=== PATIENT | female | born 1970 | race Caucasian/White ===

== ENCOUNTER 2016-09-16 23:13 | Emergency (ER) | payer BC ==
[~2016-09-16] VITALS: Ht 175.3 cm; Wt 125.6 kg
[~2016-09-16 23:13] MED LIST: METO25TA35 PO
[2016-09-16] MEDS ORDERED: LORazepam 1MG TABLET ONE (23:53)
[2016-09-17] MEDS ORDERED: LORazepam 1MG TABLET PO ONE
[2016-09-17 00:09] LABS: BLOOD UREA NITROGEN 20 mg/dL (7-18)
[2016-09-17 00:14] LABS: IS PT STATUS REG ER OR PRE ER? YES
[2016-09-17 04:06] LABS: IS PT STATUS REG ER OR PRE ER? YES
[2016-09-17 04:16] VITALS: BP 114/60
== END 2016-09-17 04:17 | disposition home or self-care (01) ==
LOC: ED 23:59
DX: R07.89 Other chest pain (principal); R06.00 Dyspnea, unspecified; F41.1 Generalized anxiety disorder; I10 Essential (primary) hypertension; J45.909 Unspecified asthma, uncomplicated; Z87.891 Personal history of nicotine dependence
CPT/HCPCS: 36415; 71010; 80048; 82040; 84484; 85025; 93005; 99285; J7512

== ENCOUNTER → 2017-04-08 | Outpatient (CLI) | payer OTHER | LOC: CARD 09:22 | PROVIDERS: ATTEND Nurse Practitioner Primary Care | DX: Z02.9 Encounter for administrative examinations, unspecified (principal) ==

== ENCOUNTER 2017-04-25 20:11 | Emergency (ER) | payer OTHER ==
[~2017-04-25] VITALS: Ht 175.3 cm; Wt 126.2 kg
[2017-04-25] MEDS ORDERED: SODIUM CHLORIDE FLUSH 10ML SYR IVF ONE (20:30)
[2017-04-25] MEDS ORDERED: SODIUM CHLORIDE 0.9% 1,000ML IVBOLUS ONE ×2 (20:30→22:00)
[2017-04-25] MEDS ORDERED: MAALOX/HYOSCYAMINE/LIDOCAINE 45 ML BTL PO ONE (20:30)
[2017-04-25] MEDS ORDERED: FAMOTIDINE 20 MG/2 ML IVP ONE (20:30)
[2017-04-25] MEDS ORDERED: ONDANSETRON 2MG/ML, 2ML IVPush ONE (20:30)
[2017-04-25 21:03] LABS: BASOPHILS # (AUTO) 0.06 x10^3/uL (0-0.1); BASOPHILS % (AUTO) 1 % (0-1); EOSINOPHILS # (AUTO) 0.24 x10^3/uL (0-0.4); EOSINOPHILS % (AUTO) 3 % (1-7); LYMPHOCYTES # (AUTO) 2.96 x10^3/uL (1-3.4); LYMPHOCYTES % (AUTO) 36 % (22-44); MD NO; MEAN CORPUSCULAR VOLUME 88.3 fL (80-100); MEAN PLATELET VOLUME 7.5 fL (7.4-10.4); MONOCYTES # (AUTO) 0.61 x10^3/uL (0.2-0.8); MONOCYTES % (AUTO) 7 % (2-9); NEUTROPHILS # (AUTO) 4.39 x10^3/uL (1.8-6.8); NEUTROPHILS % (AUTO) 53 % (42-75); PLATELET COUNT 380 x10^3/uL (130-400); RED BLOOD COUNT 4.67 x10^6/uL (3.82-5.3); RED CELL DISTRIBUTION WIDTH 13.2 % (9.6-15.2)
[2017-04-25 21:09] LABS: MICROSCOPIC NOT IND
[2017-04-25 21:14] LABS: ALBUMIN 3.7 g/dL (3.4-5.0); ANION GAP 8 mmol/L (5-15); CALCIUM 9.1 mg/dL (8.5-10.1); CHLORIDE 105 mmol/L (98-107)
[2017-04-25 21:14] LABS: CULTURE INDICATED? NO
[2017-04-25 21:17] LABS: ALANINE AMINOTRANSFERASE 75 U/L (12-78); ALKALINE PHOSPHATASE 114 U/L (45-117); BILIRUBIN,TOTAL 0.3 mg/dL (0.2-1.0); CREATININE 0.73 mg/dL (0.55-1.02); TOTAL PROTEIN 6.9 g/dL (6.4-8.2)
[2017-04-25] MEDS ORDERED: FAMOTIDINE 20 MG/2 ML ONE (21:27)
[2017-04-25] MEDS ORDERED: KETOROLAC 30 MG/1 ML ONE (21:27)
[2017-04-25] MEDS ORDERED: ONDANSETRON 2MG/ML, 2ML ONE (21:27)
[2017-04-25] MEDS ORDERED: MAALOX/HYOSCYAMINE/LIDOCAINE 45 ML BTL ONE (21:27)
[2017-04-25] MEDS ORDERED: KETOROLAC 30 MG/1 ML IVPush ONE (21:30)
[2017-04-25 23:35] VITALS: BP 147/82
== END 2017-04-25 23:37 | disposition home or self-care (01) ==
LOC: ED 23:12
DX: R10.84 Generalized abdominal pain (principal); R11.2 Nausea with vomiting, unspecified; E86.0 Dehydration; I10 Essential (primary) hypertension; E78.5 Hyperlipidemia, unspecified; Z90.49 Acquired absence of other specified parts of digestive tract
CPT/HCPCS: 36415; 74021; 80053; 81003; 83690; 85025; 96361; 96374; 96375; 99285; J1885; J7030; S0028

== ENCOUNTER → 2017-05-13 | Outpatient (CLI) | payer OTHER ==
[~2017-05-13] MED LIST changes: +REGADENOSON 0.4 MG/5 ML SYRINGE ONE
== END | disposition home or self-care (01) ==
LOC: CFH 08:23
PROVIDERS: ATTEND Nurse Practitioner Primary Care
DX: I44.7 Left bundle-branch block, unspecified (principal); I25.2 Old myocardial infarction; I10 Essential (primary) hypertension; Q21.1 Atrial septal defect; J45.909 Unspecified asthma, uncomplicated; R53.83 Other fatigue; F19.21 Other psychoactive substance dependence, in remission; M25.562 Pain in left knee; M25.561 Pain in right knee; R51 Headache; L30.9 Dermatitis, unspecified; M25.531 Pain in right wrist; M25.532 Pain in left wrist; R94.31 Abnormal electrocardiogram [ECG] [EKG]; E53.8 Deficiency of other specified B group vitamins; E55.9 Vitamin D deficiency, unspecified; Z98.84 Bariatric surgery status
CPT/HCPCS: 78452; 93017; 93306; A9502; J2785

== ENCOUNTER 2017-06-05 10:36 | Day surgery (SDC) | payer OTHER ==
[2017-06-04 08:51] LABS: BASOPHILS # (AUTO) 0.01 x10^3/uL (0-0.1); BASOPHILS % (AUTO) 0 % (0-1); EOSINOPHILS # (AUTO) 0.12 x10^3/uL (0-0.4); EOSINOPHILS % (AUTO) 1 % (1-7); LYMPHOCYTES # (AUTO) 2.04 x10^3/uL (1-3.4); LYMPHOCYTES % (AUTO) 16 % (22-44); MD NO; MEAN CORPUSCULAR HEMOGLOBIN 29.9 pg (27.0-34.8); MEAN CORPUSCULAR HGB CONC 33.9 g/dL (32.4-35.8); MEAN CORPUSCULAR VOLUME 88.3 fL (80-100); MEAN PLATELET VOLUME 7.6 fL (7.4-10.4); MONOCYTES # (AUTO) 0.48 x10^3/uL (0.2-0.8); MONOCYTES % (AUTO) 4 % (2-9); NEUTROPHILS # (AUTO) 9.84 x10^3/uL (1.8-6.8); NEUTROPHILS % (AUTO) 79 % (42-75); PLATELET COUNT 400 x10^3/uL (130-400); RED BLOOD COUNT 4.88 x10^6/uL (3.82-5.3); RED CELL DISTRIBUTION WIDTH 13.9 % (9.6-15.2)
[2017-06-04 08:52] VITALS: BP 170/92
[2017-06-04 09:02] LABS: ANION GAP 6 mmol/L (5-15); CALCIUM 8.8 mg/dL (8.5-10.1); CHLORIDE 106 mmol/L (98-107); CREATININE 0.76 mg/dL (0.55-1.02)
[~2017-06-05] VITALS: Ht 175.3 cm; Wt 127.7 kg
[~2017-06-05 10:36] MED LIST changes: +5-HY100C3 PO; +ASPI1TAB31 PO; +FLUT100B PO; +HYDR25TA6 PO; +LACT1CAP37 PO; +LEVA15HF4 INH; +MONT10TA6 PO; +MULT-767 PO; -REGADENOSON 0.4 MG/5 ML SYRINGE ONE
[2017-06-05] MEDS ORDERED: ASPIRIN 325 MG TABLET EC ONE (11:20)
[2017-06-05] MEDS ORDERED: ASPIRIN 325 MG TABLET PO ONE (11:30)
[2017-06-05] MEDS ORDERED: FENTANYL PF 100 MCG/2ML ONE (13:12)
[2017-06-05] MEDS ORDERED: TICAGRELOR 90 MG TABLET ONE (13:12)
[2017-06-05] MEDS ORDERED: BIVALIRUDIN 250 MG ONE (13:12)
[2017-06-05] MEDS ORDERED: MIDAZOLAM 1 MG/ML, 5ML ONE (13:12)
[2017-06-05] MEDS ORDERED: VERAPAMIL 2.5 MG/ML, 2ML ONE (13:12)
[2017-06-05] MEDS ORDERED: HEPARIN 1,000 UNITS/ML, 10ML ONE (13:13)
[2017-06-05] MEDS ORDERED: LIDOCAINE 2%, 20ML ONE (13:13)
[2017-06-05] MEDS ORDERED: DIPHENHYDRAMINE 50 MG/ML, 1ML ONE (13:43)
[2017-06-05] MEDS ORDERED: SODIUM CHLORIDE 0.9% 1,000 ML IV SCH (13:54)
== END 2017-06-05 16:07 ==
LOC: CACL 10:36
PROVIDERS: ATTEND Internal Medicine Cardiovascular Disease
DX: R07.89 Other chest pain (principal); J45.909 Unspecified asthma, uncomplicated; I10 Essential (primary) hypertension; E78.4 Other hyperlipidemia; Z88.0 Allergy status to penicillin; Z88.2 Allergy status to sulfonamides; Z79.82 Long term (current) use of aspirin; Z79.899 Other long term (current) drug therapy
CPT/HCPCS: 36415; 80048; 85025; 93458; 99156; C1769; C1894; J1200; J1644; J2250; J3010; J3490; Q9967; J0583

== ENCOUNTER → 2017-09-03 | Outpatient (CLI) | payer OTHER ==
[~2017-09-03] MED LIST changes: +GADOBUTROL 10 MMOL/10 ML VIAL ONE
== END | disposition home or self-care (01) ==
LOC: CFH 14:54
PROVIDERS: ATTEND Nurse Practitioner Primary Care
DX: I10 Essential (primary) hypertension (principal); R41.0 Disorientation, unspecified; J45.909 Unspecified asthma, uncomplicated; E55.9 Vitamin D deficiency, unspecified; K21.9 Gastro-esophageal reflux disease without esophagitis
CPT/HCPCS: 70553; A9585

== ENCOUNTER 2018-03-09 06:16 | Day surgery (SDC) | payer OTHER ==
[~2018-03-09] VITALS: Ht 175.3 cm; Wt 134.0 kg
[~2018-03-09 06:16] MED LIST changes: -GADOBUTROL 10 MMOL/10 ML VIAL ONE
[2018-03-09] MEDS ORDERED: BUPIVACAINE/PF-EPI 0.5% 1:200K ONE (06:24)
[2018-03-09] MEDS ORDERED: HYDR25TA6 PO (06:56)
[2018-03-09] MEDS ORDERED: METH500T97 PO (06:56)
[2018-03-09] MEDS ORDERED: IBUP-1221 PO (06:56)
[2018-03-09] MEDS ORDERED: LACTATED RINGERS 1,000 ML IV SCH (07:05)
[2018-03-09 07:06] VITALS: BP 116/90
[2018-03-09 07:40] LABS: ALANINE AMINOTRANSFERASE 37 U/L (12-78); ALBUMIN 3.8 g/dL (3.4-5.0); ANION GAP 6 mmol/L (5-15); CALCIUM 8.5 mg/dL (8.5-10.1); CHLORIDE 111 mmol/L (98-107); CREATININE 0.63 mg/dL (0.55-1.02)
[2018-03-09 07:42] LABS: ALKALINE PHOSPHATASE 63 U/L (45-117); BILIRUBIN,TOTAL 0.4 mg/dL (0.2-1.0)
[2018-03-09] MEDS ORDERED: TRIAMCINOLONE ACETONIDE 40 MG/ML, 1ML ONE (07:49)
[2018-03-09] MEDS ORDERED: BACITRACIN 50,000 UNIT ONE (07:54)
[2018-03-09] MEDS ORDERED: FENTANYL PF 100 MCG/2ML ONE ×2 (07:59→08:38)
[2018-03-09] MEDS ORDERED: MIDAZOLAM 1 MG/ML, 2ML ONE (07:59)
[2018-03-09] MEDS ORDERED: PROPOFOL 10 MG/ML, 20ML ONE (08:02)
[2018-03-09] MEDS ORDERED: ROCURONIUM 10MG/ML,5ML ONE (08:02)
[2018-03-09] MEDS ORDERED: SUCCINYLCHOLINE 20 MG/ML, 10ML ONE (08:02)
[2018-03-09] MEDS ORDERED: DEXAMETHASONE 4 MG/ML, 1ML ONE (08:06)
[2018-03-09] MEDS ORDERED: ONDANSETRON 2MG/ML, 2ML ONE (08:06)
[2018-03-09] MEDS ORDERED: KETOROLAC 30 MG/1 ML ONE (08:24)
[2018-03-09] MEDS ORDERED: PROMETHAZINE 25 MG/ML, 1ML IV PRN (08:30)
[2018-03-09] MEDS ORDERED: ACETAMINOPHEN 325 MG TABLET PO PRN (08:30)
[2018-03-09] MEDS ORDERED: HYDROmorphone 2 MG/ML, 1ML IVPush PRN (08:30)
[2018-03-09] MEDS ORDERED: MORPHINE SULFATE 4 MG/ML, 1ML IVPush PRN (08:30)
[2018-03-09] MEDS ORDERED: FENTANYL PF 100 MCG/2ML IV PRN (08:30)
[2018-03-09] MEDS ORDERED: EPHEDRINE 50 MG/ML, 1ML IVPush PRN (08:30)
[2018-03-09] MEDS ORDERED: ONDANSETRON 2MG/ML, 2ML IV PRN (08:30)
[2018-03-09] MEDS ORDERED: PROMETHAZINE 12.5 MG SUPP PR PRN (08:30)
[2018-03-09] MEDS ORDERED: MEPERIDINE/PF 25MG/0.5ML IVPush PRN (08:30)
[2018-03-09] MEDS ORDERED: LABETALOL 5MG/ML, 20ML IV PRN (08:30)
[2018-03-09] MEDS ORDERED: ALBUTEROL SULFATE 2.5 MG/3 ML NPPB PRN (08:30)
[2018-03-09] MEDS ORDERED: OXYcodone 5 MG/5 ML ORAL.SOL UDC PO PRN (08:30)
[2018-03-09] MEDS ORDERED: DIAZEPAM 5 MG/ML, 2ML IVPush PRN (08:30)
[2018-03-09] MEDS ORDERED: MIDAZOLAM 1 MG/ML, 2ML IV PRN (08:30)
[2018-03-09] MEDS ORDERED: hydrALAzine 20 MG/ML, 1ML IV PRN (08:30)
[2018-03-09] MEDS ORDERED: ONDANSETRON ODT 8 MG PO PRN (08:30)
[2018-03-09] MEDS ORDERED: OXYcodone 5 MG/5 ML ORAL.SOL UDC ONE (08:38)
[2018-03-09] MEDS ORDERED: ACETAMINOPHEN 650 MG/20.3 ML UDC ONE (09:13)
== END 2018-03-09 10:15 | disposition home or self-care (01) ==
LOC: OUT 06:16
PROVIDERS: ATTEND Orthopaedic Surgery
DX: G56.02 Carpal tunnel syndrome, left upper limb (principal); M19.042 Primary osteoarthritis, left hand; J45.909 Unspecified asthma, uncomplicated; I10 Essential (primary) hypertension; Z87.891 Personal history of nicotine dependence; Z88.1 Allergy status to other antibiotic agents; Z88.0 Allergy status to penicillin
CPT/HCPCS: 20600; 29848; 36415; 80053; J0330; J1100; J1885; J2250; J2405; J2704; J3301; J7120; J3010

== ENCOUNTER 2019-10-26 16:38 | Emergency (ER) | payer OTHER ==
[~2019-10-26] VITALS: Ht 175.3 cm; Wt 132.0 kg
[~2019-10-26 16:38] MED LIST changes: +CYAN-27 PO; +ERGO500017 PO; +IBUP-1221 PO; +MAGN400T26 PO; +METH500T97 PO; +PHOS250T3 PO; +POTA20TA89 PO; +SERT100T32 PO
--- NOTE | 2019-10-26 16:53 | NUR ---
ERMD AT BEDSIDE FOR EVALUATION.
--- NOTE | 2019-10-26 16:53 | NUR ---
PATIENT BIB [facility] AFTER BEING SEEN AT URGENT CARE. PATIENT STATES THAT AROUND NOON SHE STARTED FEELING SHARP/BURNING PAIN IN THE BACK OF HER NECK WHICH SPREAD THROUGHOUT HER BODY. PATIENT DESCRIBES PAIN FEELING LIKE "LITTLE KNIVES ALL OVER." PATIENT ALSO STATED THAT SHE STARTED HAVING A DIFFICULT TIME TAKING IN DEEP BREATHS DUE TO A DULL/DEEP PAIN IN THE RIGHT SIDE OF HER ABDOMEN/FLANK AREA. PATIENT TOOK 50 MG BENADRYL. PATIENT WENT TO URGENT CARE AND WAS NOTICED TO HAVE SOME HIVES BUE AND BLE, SHE WAS GIVEN 150 MG SOLU-MEDROL AT URGENT CARE BEFORE BEING TRANSPORTED TO HOSPITAL. PATIENT IS ACCOMPANIED BY SIGNIFICANT OTHER, A&OX4, C/O OF DIFFICULTY TAKING DEEP BREATHS, O2 SATURATION IS 99% ON RA. SMALL RED BUMPS NOTED ON BOTH LEGS, CHEST, BACK AND CHIN. PATIENT C/O OF 5/10 PAIN WHEN SHE TAKES IN A DEEP BREATH.
[2019-10-26] MEDS ORDERED: SODIUM CHLORIDE FLUSH 10ML SYR IVF ONE (17:00)
[2019-10-26] MEDS ORDERED: HYDROmorphone 2 MG/ML, 1ML IVPush PRN (17:00)
[2019-10-26] MEDS ORDERED: MELO15TA6 PO (17:01)
[2019-10-26] MEDS ORDERED: SPIR50TA4 PO (17:02)
[2019-10-26] MEDS ORDERED: HYDROmorphone 1 MG/ML, 1ML INJ ONE (17:13)
--- NOTE | 2019-10-26 17:21 | NUR ---
PATIENT MEDICATED PER eMAR, CONNECTED TO TRACK LAYING MACHINE OPERATOR, EDUCATED ON NEED FOR URINE SAMPLE. PATIENT STATES SHE WILL TRY TO URINATE IN A FEW MINUTES. NO FURTHER NEEDS AT THIS TIME.
--- NOTE | 2019-10-26 18:01 | NUR ---
PATIENT AMBULATED TO BATHROOM WITH SOME INCREASE IN SOB AND PAIN WHEN TAKING DEEP BREATHS. URINE SAMPLE SENT TO LAB. PATIENT STATES HER PAIN LEVEL IS BETTER AFTER THE DILAUDID. PATIENT'S O2 SATURATION IS 97% ON RA. NO FURTHER NEEDS AT THIS TIME.
[2019-10-26 18:06] LABS: BASOPHILS # (AUTO) 0.04 x10^3/uL (0-0.1); BASOPHILS % (AUTO) 0 % (0-1); EOSINOPHILS # (AUTO) 0.13 x10^3/uL (0-0.4); EOSINOPHILS % (AUTO) 1 % (1-7); LYMPHOCYTES % (AUTO) 7 % (22-44); MD NO; MEAN CORPUSCULAR HEMOGLOBIN 24.2 pg (27.0-34.8); MEAN CORPUSCULAR HGB CONC 31.6 g/dL (32.4-35.8); MEAN CORPUSCULAR VOLUME 76.5 fL (80-100); MONOCYTES # (AUTO) 0.45 x10^3/uL (0.2-0.8); MONOCYTES % (AUTO) 4 % (2-9); NEUTROPHILS # (AUTO) 9.89 x10^3/uL (1.8-6.8); NEUTROPHILS % (AUTO) 88 % (42-75); PLATELET COUNT 383 x10^3/uL (130-400); RED BLOOD COUNT 4.29 x10^6/uL (3.82-5.3); RED CELL DISTRIBUTION WIDTH 15.6 % (9.6-15.2)
[2019-10-26] MEDS ORDERED: ALUMINUM/MAG/SIMETHICONE 30 ML UDC ONE (18:10)
[2019-10-26 18:11] LABS: MICROSCOPIC NOT IND
[2019-10-26 18:11] LABS: ALBUMIN 3.7 g/dL (3.4-5.0); ANION GAP 7 mmol/L (5-15); CALCIUM 8.3 mg/dL (8.5-10.1); CHLORIDE 111 mmol/L (98-107)
[2019-10-26 18:16] LABS: ALANINE AMINOTRANSFERASE 34 U/L (12-78); ALKALINE PHOSPHATASE 67 U/L (45-117); BILIRUBIN,TOTAL 0.3 mg/dL (0.2-1.0); CREATININE 0.67 mg/dL (0.55-1.02); TOTAL PROTEIN 6.8 g/dL (6.4-8.2); TROPONIN I < 0.015 ng/mL (0.000-0.045)
[2019-10-26] MEDS ORDERED: ALUMINUM/MAG/SIMETHICONE 30 ML UDC PO PRN (18:30)
[2019-10-26] MEDS ORDERED: FAMOTIDINE 20 MG TABLET PO ONE (18:30)
[2019-10-26] MEDS ORDERED: MAALOX/HYOSCYAMINE/LIDOCAINE 45 ML BTL PO ONE (18:30)
[2019-10-26] MEDS ORDERED: FAMOTIDINE 20 MG TABLET ONE (18:35)
[2019-10-26] MEDS ORDERED: MAALOX/HYOSCYAMINE/LIDOCAINE 45 ML BTL ONE (18:36)
[2019-10-26] MEDS ORDERED: OMNIPAQUE 350 MG/ML, 75ML BOTTLE ONE (19:44)
--- NOTE | 2019-10-26 20:43 | NUR ---
PT RESTING IN BED, PT CONECTED TO MONITOR. TAPE EDITOR WILL CONTINUE TO MONITOR PT VSS. PT MEDICATED PER EMAR
[2019-10-26 21:37] VITALS: BP 132/74
--- NOTE | 2019-10-26 21:39 | NUR ---
PT WAS OFFERED ADMIT BY PROVIDER AND DENIED THE ADMIT AND PERFERED TO GO HOME INSTEAD.
== END 2019-10-26 21:41 | disposition home or self-care (01) ==
LOC: ED 21:35
DX: K21.9 Gastro-esophageal reflux disease without esophagitis (principal); L50.1 Idiopathic urticaria; R07.89 Other chest pain; D50.0 Iron deficiency anemia secondary to blood loss (chronic); J45.909 Unspecified asthma, uncomplicated; I10 Essential (primary) hypertension; E78.5 Hyperlipidemia, unspecified; Z90.49 Acquired absence of other specified parts of digestive tract; Z90.710 Acquired absence of both cervix and uterus
CPT/HCPCS: 36415; 71045; 71275; 80053; 81003; 83690; 84484; 85025; 85379; 93005; 96374; 99285; J1170; Q9967

== ENCOUNTER 2020-09-22 09:16 | Outpatient (CLI) | payer BC, OTHER ==
[~2020-09-22 09:16] MED LIST changes: -LACT1CAP37 PO; +LACT1CAP47 PO; +MELO15TA6 PO; +SPIR50TA4 PO
== END 2020-09-22 23:59 | disposition home or self-care (01) ==
LOC: CFH 09:16
PROVIDERS: ATTEND Family Medicine
DX: Z12.31 Encounter for screening mammogram for malignant neoplasm of breast (principal)
CPT/HCPCS: 77063; 77067